=== PATIENT | male | born 1995 | race Caucasian/White ===

== ENCOUNTER 2016-09-10 16:12 | Emergency (ER) | payer BC ==
[2016-09-10] MEDS ORDERED: SODIUM CHLORIDE 0.9% 1,000 ML IV STA ×2 (17:00)
--- NOTE | 2016-09-10 17:07 | ED ---
General Adult HPI - General Chief complaint: Abdominal Pain Stated complaint: [facility] sent Time Seen by Provider: 09/10/16 16:41 Source: patient, family, RN notes reviewed Mode of arrival: ambulatory Limitations: no limitations - History of Present Illness Initial comments: Chief complaint history of present illness this is a 20-year-old male with complaint of mild abdominal any mild nausea and slight dizziness yesterday which made him leave work early. He went to a local urgent care clinic. At that spot he had had Monospot test done which was negative as well as a rapid strep test was negative. Patient reports his last bowel movement was yesterday. Mild cramping today. X-ray performed at that facility showed nonspecific air-fluid level as read by the radiologist.. On the patient's own self-examination he states he has discomfort to the right lower quadrant. - Related Data Home Medications Medication Instructions Recorded Confirmed No Known Home Medications [No 09/10/16 09/10/16 Known Home Medications] Allergies Allergy/AdvReac Type Severity Reaction Status Date / Time No Known Allergies Allergy Verified 09/10/16 17:38 Review of Systems ROS Statement: Those systems with pertinent positive or pertinent negative responses have been documented in the HPI. Review of systems no headache or visual acuity changes no sore throat this time. No chest pain or shortness of breath minimal nausea no vomiting last bowel movement yesterday has not passed gas since then. Slightly decreased appetite. No neuro deficits. All systems otherwise reviewed. Past medical problems ADHD on no medications for that. Surgeries none. Family history mother had I did inform mold. Uncle had prostate cancer. Patient no ALLERGIES nonsmoker nondrinker. ROS Other: All systems not noted in ROS Statement are negative. Past Medical History Past Medical History: No Reported History History of Any Multi-Drug Resistant Organisms: None Reported Past Surgical History: No Surgical Hx Reported Past Psychological History: No Psychological Hx Reported Smoking Status: Never smoker Past Alcohol Use History: None Reported Past Drug Use History: None Reported General Exam - General Exam Comments Initial Comments: General: The patient is awake and alert, in no distress, and does not appear acutely ill. Complains of mild abdominal discomfort mild nausea, decreased appetite. Vital signs temperature 98.4 pulse 88 respiratory rate 20 pulse ox 99% room air blood pressure 136/80. Eye: Pupils are equal, round and reactive to light, extra-ocular movements are intact ; there is normal conjunctiva bilaterally. No signs of icterus. Ears, nose, mouth and throat: There are moist mucous membranes and no oral lesions. Neck: The neck is supple, there is no tenderness . No anterior cervical lymphadenopathy Cardiovascular: There is a regular rate and rhythm. No murmur, rub or gallop is appreciated. Respiratory: Lungs are clear to auscultation, respirations are non-labored, breath sounds are equal. No wheezes, stridor, rales, or rhonchi. Gastrointestinal: Soft, non-distended, S minimalslight tenderness to the right lower quadrant . There is no rebound or guarding present. No CVA tenderness. Decreased bowel sounds patient had a bowel movement yesterday. He has not passed gas since then. Decreased appetite Back: There is no tenderness to palpation in the midline. Musculoskeletal: Normal ROM, no tenderness, There is no pedal edema. There is no calf tenderness or swelling. Sensation intact. Neurological: Slightly dizzy yesterday but no loss of balance. No headache. No neuro deficits appreciated. Skin: Skin is warm and dry and no rashes or lesions are noted. Limitations: no limitations Course Vital Signs 09/10/16 09/10/16 16:16 18:48 Temperature 98.4 F 98.3 F Pulse Rate 88 86 Respiratory 20 18 Rate Blood Pressure 136/80 152/87 O2 Sat by Pulse 99 98 Oximetry Medical Decision Making - Medical Decision Making Patient white count is 4.4 hemoglobin 14.8 hematocrit of 44, amylase lipase within normal limits. Potassium is 4.2 with a BUN 13 creatinine 0.9 with the GFR greater than 60. Urine is clean no signs of infection or blood. CT of the abdomen was done with both IV and oral contrast. Radiologist final impression is loops of bowel within the abdomen and pelvis are normal. Appendix was normal as visualized. No suspicious inflammatory changes or dilatation is evident. No clinical evidence at rest. No suspicious adenopathy in the right lower quadrant. Impression; #[address] pelvis. Normal appendix. As read by Dr. Penaloza The patient will be advised to use milk of magnesia in order to assist in having bowel movements advised increase his fluid intake and fiber diet. Advised follow-up with family physician as needed use Tylenol or ibuprofen for pain. - Lab Data Result diagrams: 09/10/16 17:16 09/10/16 17:16 Lab Results 09/10/16 09/10/16 09/10/16 Range/Units 17:16 17:16 17:16 WBC 4.4 (3.8-10.6) k/uL RBC 5.21 (4.30-5.90) m/uL Hgb 14.8 (13.0-17.5) gm/dL Hct 44.2 (39.0-53.0) % MCV 84.8 (80.0-100.0) fL MCH 28.4 (25.0-35.0) pg MCHC 33.5 (31.0-37.0) g/dL RDW 13.0 (11.5-15.5) % Plt Count 302 (150-450) k/uL Neutrophils % 47 % Lymphocytes % 33 % Monocytes % 14 % Eosinophils % 1 % Basophils % 1 % Neutrophils # 2.0 (1.3-7.7) k/uL Lymphocytes # 1.5 (1.0-4.8) k/uL Monocytes # 0.6 (0-1.0) k/uL Eosinophils # 0.1 (0-0.7) k/uL Basophils # 0.0 (0-0.2) k/uL Sodium 141 (137-145) mmol/L Potassium 4.2 (3.5-5.1) mmol/L Chloride 104 (98-107) mmol/L Carbon Dioxide 25 (22-30) mmol/L Anion Gap 12 mmol/L BUN 13 (9-20) mg/dL Creatinine 0.90 (0.66-1.25) mg/dL Est GFR (MDRD) Af Amer >60 (>60 ml/min/1.73 sqM) Est GFR (MDRD) Non-Af >60 (>60 ml/min/1.73 sqM) Glucose 92 (74-99) mg/dL Plasma Lactic Acid Greg 0.7 (0.7-2.0) mmol/L Calcium 10.0 (8.4-10.2) mg/dL Total Bilirubin 0.4 (0.2-1.3) mg/dL AST 17 (17-59) U/L ALT 31 (21-72) U/L Alkaline Phosphatase 54 (38-126) U/L Total Protein 7.6 (6.3-8.2) g/dL Albumin 4.6 (3.5-5.0) g/dL Amylase 31 (30-110) U/L Lipase 39 (23-300) U/L Urine Color Urine Appearance (Clear) Urine pH (5.0-8.0) Ur Specific [place] (1.001-1.035) Urine Protein (Negative) Urine Glucose (UA) (Negative) Urine Ketones (Negative) Urine Blood (Negative) Urine Nitrite (Negative) Urine Bilirubin (Negative) Urine Urobilinogen (<2.0) mg/dL Ur Leukocyte Esterase (Negative) 09/10/16 Range/Units 18:25 WBC (3.8-10.6) k/uL RBC (4.30-5.90) m/uL Hgb (13.0-17.5) gm/dL Hct (39.0-53.0) % MCV (80.0-100.0) fL MCH (25.0-35.0) pg MCHC (31.0-37.0) g/dL RDW (11.5-15.5) % Plt Count (150-450) k/uL Neutrophils % % Lymphocytes % % Monocytes % % Eosinophils % % Basophils % % Neutrophils # (1.3-7.7) k/uL Lymphocytes # (1.0-4.8) k/uL Monocytes # (0-1.0) k/uL Eosinophils # (0-0.7) k/uL Basophils # (0-0.2) k/uL Sodium (137-145) mmol/L Potassium (3.5-5.1) mmol/L Chloride (98-107) mmol/L Carbon Dioxide (22-30) mmol/L Anion Gap mmol/L BUN (9-20) mg/dL Creatinine (0.66-1.25) mg/dL Est GFR (MDRD) Af Amer (>60 ml/min/1.73 sqM) Est GFR (MDRD) Non-Af (>60 ml/min/1.73 sqM) Glucose (74-99) mg/dL Plasma Lactic Acid Greg (0.7-2.0) mmol/L Calcium (8.4-10.2) mg/dL Total Bilirubin (0.2-1.3) mg/dL AST (17-59) U/L ALT (21-72) U/L Alkaline Phosphatase (38-126) U/L Total Protein (6.3-8.2) g/dL Albumin (3.5-5.0) g/dL Amylase (30-110) U/L Lipase (23-300) U/L Urine Color Yellow Urine Appearance Clear (Clear) Urine pH 6.0 (5.0-8.0) Ur Specific [place] 1.013 (1.001-1.035) Urine Protein Negative (Negative) Urine Glucose (UA) Negative (Negative) Urine Ketones Negative (Negative) Urine Blood Negative (Negative) Urine Nitrite Negative (Negative) Urine Bilirubin Negative (Negative) Urine Urobilinogen <2.0 (<2.0) mg/dL Ur Leukocyte Esterase Negative (Negative) Disposition Clinical Impression: Abdominal cramping in right lower quadrant Disposition: HOME SELF-CARE Condition: Fair Instructions: Abdominal Pain (ED) Time of Disposition: 20:40
[2016-09-10 17:37] LABS: Basophils % (A) 1 %; CH 28.7; Eosinophils # (A) 0.1 k/uL (0-0.7); Eosinophils % (A) 1 %; HCT 44.2 % (39.0-53.0); HDW 2.34; HGB 14.8 gm/dL (13.0-17.5); Luc # (Auto) 0.18; Luc % (Auto) 4; Lymphocytes # (A) 1.5 k/uL (1.0-4.8); Lymphocytes % (A) 33 %; MCH 28.4 pg (25.0-35.0); MCHC 33.5 g/dL (31.0-37.0); MCV 84.8 fL (80.0-100.0); Mean Platelet Volume 6.6; Monocytes # (A) 0.6 k/uL (0-1.0); Monocytes % (A) 14 %; Neutrophils % (A) 47 %; RBC 5.21 m/uL (4.30-5.90); WBC 4.4 k/uL (3.8-10.6); WBC (Perox) 4.44
[2016-09-10 17:50] LABS: ALT 31 U/L (21-72); AST 17 U/L (17-59); Alkaline Phosphatase 54 U/L (38-126); Amylase 31 U/L (30-110); Anion Gap 12 mmol/L; Blood Urea Nitrogen 13 mg/dL (9-20); Carbon Dioxide 25 mmol/L (22-30); Chloride 104 mmol/L (98-107); Glucose 92 mg/dL (74-99); Non-African American GFR(MDRD) >60 (>60 ml/min/1.73 sqM); Potassium 4.2 mmol/L (3.5-5.1); Sodium 141 mmol/L (137-145); Total Bilirubin 0.4 mg/dL (0.2-1.3); Total Protein 7.6 g/dL (6.3-8.2)
[2016-09-10] MEDS ORDERED: IOHEXOL 350 MG/ML 25 ML BOTTLE (ORAL USE) PO PRN (18:19)
[2016-09-10] MEDS ORDERED: RX INFO: IV CONTRAST WAS GIVEN 1 EACH MISC MISCELLANE PRN (18:19)
[2016-09-10 18:49] VITALS: RESP 18
[2016-09-10 18:50] LABS: Appearance,Urine Clear (Clear); Bilirubin,Urine Negative (Negative); Glucose,Urine (UA) Negative (Negative); Ketones,Urine Negative (Negative); Leukocyte Esterase,Urine Negative (Negative); Nitrite,Urine Negative (Negative); Protein,Urine Negative (Negative); Specific Gravity,Urine 1.013 (1.001-1.035); UA Billing (MACRO vs. MICRO) CHEM; Urobilinogen,Urine <2.0 mg/dL (<2.0)
--- NOTE | 2016-09-10 19:48 | CT ---
EXAMINATION TYPE: CT abdomen pelvis w con DATE OF EXAM: 09/10/2016 7:31 PM COMPARISON: 07/04/2013 INDICATION: Generalized pain with dizziness DLP: 1368 mGycm, Automated exposure control for dose reduction was used. CONTRAST: 100 mL of Omnipaque 300. Study performed without Oral Contrast TECHNIQUE: Axial images were obtained from above the diaphragm to the pubic rami in the axial plane a t 5 mm thick sections. Reconstructed images are reviewed on the computer in the coronal plane. FINDINGS: Limited CT sections are obtained the lung bases. The lung bases are clear. CT ABDOMEN: Liver: Normal Spleen: Normal Pancreas: Normal Adrenal glands: The adrenal glands are normal. Gallbladder: Normal Kidneys: No masses are evident. No hydronephrosis is present. No cysts are present. Delayed images were obtained through the kidneys, which remain unremarkable. Aorta: Normal Inferior vena cava: Normal. CT PELVIS: Loops of bowel within the abdomen and pelvis are normal. Study is without oral contrast causing l imitation. Appendix: Normal as visualized. No suspicious inflammatory changes are dilatation is evident. No appe ndicolith is present. No suspicious adenopathy in the right lower quadrant. Urinary bladder: Normal. Genitourinary structures: Prostate is unremarkable Osseous structures: No suspicious lytic or sclerotic lesions. IMPRESSIONS: 1. Normal CT abdomen pelvis. 2. Normal appendix
[2016-09-10 21:08] VITALS: BP 142/74; PULSE 79; TEMP 98.1
== END 2016-09-10 21:08 | disposition home or self-care (01) ==
LOC: EC 16:12
DX: R10.31 Right lower quadrant pain (principal); R42 Dizziness and giddiness; R11.0 Nausea
CPT/HCPCS: 36415; 80053; 82150; 83605; 83690; 85025; 81003; 87086; 74177; 99284; 96360; 96361 ×3; Q9967

== ENCOUNTER 2016-11-19 00:15 | Emergency (ER) | payer OTHER, BC ==
[2016-11-19 00:25] VITALS: RESP 18
--- NOTE | 2016-11-19 00:59 | ED ---
Fall HPI - General Chief Complaint: Fall Stated Complaint: Fall/[facility] Time Seen by Provider: 11/19/16 00:42 Source: patient, family, RN notes reviewed Mode of arrival: EMS - History of Present Illness Initial Comments: Patient is 20-year-old male presents to the emergency room for evaluation of fall injury. Patient states while at work he slipped and fell injuring his neck and the back of his head. Patient denies losing consciousness. Patient also states that he had right knee pain and left elbow pain after the incident. Patient states his knee and elbow feel better. Patient states he's having constant pain in the base of his skull/neck. Patient denies paresthesias. Patient denies weakness. Patient denies any lower back pain. Patient states he 's having a constant headache. Patient denies changes in vision. Patient denies dizziness. Patient denies ringing in ears. Patient denies any other injuries during incident. - Related Data Home Medications Medication Instructions Recorded Confirmed No Known Home Medications [No 09/10/16 11/19/16 Known Home Medications] Allergies Allergy/AdvReac Type Severity Reaction Status Date / Time No Known Allergies Allergy Verified 11/19/16 00:25 Review of Systems ROS Statement: Those systems with pertinent positive or pertinent negative responses have been documented in the HPI. ROS Other: All systems not noted in ROS Statement are negative. Past Medical History Past Medical History: No Reported History History of Any Multi-Drug Resistant Organisms: None Reported Past Surgical History: No Surgical Hx Reported Past Psychological History: No Psychological Hx Reported Smoking Status: Never smoker Past Alcohol Use History: None Reported Past Drug Use History: None Reported General Exam - General Exam Comments Initial Comments: Laying in exam room, c-collar on Limitations: no limitations General appearance: alert, in no apparent distress Head exam: Present: atraumatic, normocephalic, normal inspection Eye exam: Present: normal appearance, PERRL, EOMI Pupils: Present: normal accommodation ENT exam: Present: normal exam, TM's normal bilaterally Neck exam: Present: tenderness (Cervical spine). Absent: normal inspection (c- collar on) Respiratory exam: Present: normal lung sounds bilaterally. Absent: respiratory distress Cardiovascular Exam: Present: regular rate, normal rhythm, normal heart sounds Extremities exam: Present: normal inspection Back exam: Present: normal inspection Neurological exam: Present: alert, oriented X3, CN II-XII intact Psychiatric exam: Present: normal affect, normal mood Skin exam: Present: warm, dry, intact, normal color, other (Ecchymosis and abrasion over right knee). Absent: rash Course Vital Signs 11/19/16 00:21 Temperature 98.4 F Pulse Rate 91 Respiratory 18 Rate Blood Pressure 141/62 O2 Sat by Pulse 98 Oximetry Medical Decision Making - Medical Decision Making Patient is a 20-year-old male since emergency room per dilution of slip and fall injury at work. Patient complaining of neck pain and headache. Brain C- spine negative for any acute findings. C-collar removed. Patient declined any pain medications while he was here. Advised patient to take Tylenol or Motrin for pain and to follow up with primary care provider for reevaluation 24-48 hours. Patient states he understands everything that was discussed with him. Return parameters discussed. Case discussed Dr. Claros. - Radiology Data Radiology results: report reviewed, image reviewed Disposition Clinical Impression: Fall, Cervical strain Disposition: HOME SELF-CARE Condition: Good Instructions: Cervical Strain (ED) Additional Instructions: Take Tylenol or ibuprofen as needed for discomfort. Please follow up with primary care provider in 1-2 days for reevaluation. If any new symptom arises or symptoms worsen, return to ER as soon as possible. Referrals: Igor Jane Jr, [Primary Care Provider] - 1-2 days Time of Disposition: 02:10
--- NOTE | 2016-11-19 01:58 | CT ---
EXAM: CT Head Without Intravenous Contrast CLINICAL HISTORY: Reason: Fall to left side, neck pain TECHNIQUE: Axial computed tomography images of the head/brain without intravenous contrast. CTDI is 57.40 mGy and DLP is 1116.00 mGy-cm. This CT exam was performed using one or more of the following dose reduction techniques: automated exposure control, adjustment of the mA and/or kV according to patient size, and/or use of iterative reconstruction technique. COMPARISON: None FINDINGS: Brain: No acute infarct or hemorrhage. No extra-axial fluid collection. No mass effect or midline shift. Ventricles and sulci: Normal. No ventriculomegaly or intraventricular hemorrhage. Skull: Normal. No bony lesion or fracture. Subcutaneous tissues: Normal. Sinuses: Normal. No air-fluid levels or mucosal thickening. Mastoid air cells: Normal. Orbits: Grossly unremarkable. IMPRESSION: No acute intracranial abnormality. EXAM: CT Cervical Spine Without Intravenous Contrast CLINICAL HISTORY: Reason: Fall to left side, neck pain TECHNIQUE: Axial computed tomography images of the cervical spine without intravenous contrast. CTDI is 23.00 mGy and DLP is 573.30 mGy-cm. This CT exam was performed using one or more of the following dose reduction techniques: automated exposure control, adjustment of the mA and/or kV according to patient size, and/or use of iterative reconstruction technique. COMPARISON: None FINDINGS: Bones: Normal alignment. No acute fracture or bony lesion. Disc spaces: No subluxation. No spinal canal stenosis or neuroforaminal stenosis. Soft tissues: Normal. Other: Normal. IMPRESSION: No acute traumatic abnormality.
[2016-11-19 02:32] VITALS: BP 132/61; PULSE 84; TEMP 98.5
== END 2016-11-19 02:31 | disposition home or self-care (01) ==
LOC: EC 00:15
DX: S16.1XXA Strain of muscle, fascia and tendon at neck level, initial encounter (principal); S80.01XA Contusion of right knee, initial encounter; S09.90XA Unspecified injury of head, initial encounter; W01.0XXA Fall on same level from slipping, tripping and stumbling without subsequent striking against object, initial encounter; Y92.69 Other specified industrial and construction area as the place of occurrence of the external cause
CPT/HCPCS: 70450; 72125; 99284

== ENCOUNTER 2019-03-08 22:35 | Emergency (ER) | payer BC ==
[2019-03-08 23:25] LABS: Basophils # (A) 0.1 k/uL (0-0.2); Basophils % (A) 1 %; Eosinophils # (A) 0.1 k/uL (0-0.7); Eosinophils % (A) 1 %; HCT 46.4 % (39.0-53.0); HGB 15.4 gm/dL (13.0-17.5); Lymphocytes # (A) 1.2 k/uL (1.0-4.8); Lymphocytes % (A) 11 %; MCH 27.6 pg (25.0-35.0); MCHC 33.2 g/dL (31.0-37.0); MCV 83.3 fL (80.0-100.0); Mean Platelet Volume 6.3; Monocytes # (A) 0.5 k/uL (0-1.0); Monocytes % (A) 4 %; Neutrophils % (A) 82 %; Platelet Count 389 k/uL (150-450); RBC 5.57 m/uL (4.30-5.90); RDW 12.7 % (11.5-15.5)
[2019-03-08 23:39] LABS: ALT 37 U/L (21-72); AST 23 U/L (17-59); Acetaminophen <10.0 ug/mL; African American GFR (CKD) >90 (>60 ml/min/1.73 sqM); Albumin 4.9 g/dL (3.5-5.0); Alcohol <10 mg/dL; Alkaline Phosphatase 64 U/L (38-126); Anion Gap 12 mmol/L; Blood Urea Nitrogen 12 mg/dL (9-20); Calcium 10.3 mg/dL (8.4-10.2); Carbon Dioxide 21 mmol/L (22-30); Chloride 105 mmol/L (98-107); Glucose 116 mg/dL (74-99); Potassium 4.2 mmol/L (3.5-5.1); Salicylate <1.0 mg/dL; Sodium 138 mmol/L (137-145); Total Bilirubin 0.5 mg/dL (0.2-1.3); Total Protein 8.2 g/dL (6.3-8.2)
--- NOTE | 2019-03-08 23:47 | ED ---
Psych HPI - General Chief Complaint: Psychiatric Symptoms Stated Complaint: Mental health Time Seen by Provider: 03/08/19 22:53 Source: patient Mode of arrival: ambulatory - History of Present Illness Initial Comments: Jose 23-year-old gentleman with a history of depression who presents the emergency department today requesting psychiatric care. Patient states that today he had a long conversation with an ex and states that he's had some realization's about himself and is feeling very depressed. Patient states that he wants to . He states that he was considering driving his truck as fast as possible into a tree to kill himself. Patient has a history of depression but is never been hospitalized is not on any medications. - Related Data Home Medications Medication Instructions Recorded Confirmed No Known Home Medications 09/10/16 03/08/19 Allergies Allergy/AdvReac Type Severity Reaction Status Date / Time No Known Allergies Allergy Verified 03/08/19 23:15 Review of Systems ROS Statement: Those systems with pertinent positive or pertinent negative responses have been documented in the HPI. ROS Other: All systems not noted in ROS Statement are negative. Past Medical History Past Medical History: No Reported History History of Any Multi-Drug Resistant Organisms: None Reported Past Surgical History: No Surgical Hx Reported Past Psychological History: No Psychological Hx Reported Smoking Status: Never smoker Past Alcohol Use History: None Reported Past Drug Use History: None Reported General Exam - General Exam Comments Initial Comments: Physical Exam GENERAL: Patient is well-developed and well-nourished. Patient is nontoxic and well- hydrated and is in no distress. HENT: Normocephalic, Atraumatic. EYES: PERRL, EOMI PULMONARY: Unlabored respirations. No audible rales rhonchi or wheezing was noted. CARDIOVASCULAR: Tachycardic regular ABDOMEN: Soft and nontender with normal bowel sounds. SKIN: Skin is clear with no lesions or rashes and otherwise unremarkable. : Deferred NEUROLOGIC: Patient is alert and oriented x3. Moving all extremities spontaneously MUSCULOSKELETAL: Normal extremities with adequate strength and full range of motion. No lower extremity swelling or edema. No calf tenderness. PSYCHIATRIC: Tearful, crying, depressed, suicidal Limitations: no limitations Course Vital Signs 03/08/19 03/09/19 22:43 04:06 Temperature 98.3 F 98.4 F Pulse Rate 130 H 117 H Respiratory 18 19 Rate Blood Pressure 146/91 126/67 O2 Sat by Pulse 98 98 Oximetry Medical Decision Making - Medical Decision Making Patient was seen and evaluated history is obtained from patient Patient is medically cleared for evaluation by emergency psychiatric services Emergency psychiatric services agrees with plan for inpatient psychiatric care. Patient was petitioned by the EPS nurse, I completed the patient certification. Patient is clear for transfer to psychiatric facility. I did complete psychiatric certification. - Lab Data Result diagrams: 03/08/19 23:02 03/08/19 23:02 Lab Results 03/08/19 03/08/19 03/08/19 Range/Units 23:02 23:02 23:02 WBC 11.0 H (3.8-10.6) k/uL RBC 5.57 (4.30-5.90) m/uL Hgb 15.4 (13.0-17.5) gm/dL Hct 46.4 (39.0-53.0) % MCV 83.3 (80.0-100.0) fL MCH 27.6 (25.0-35.0) pg MCHC 33.2 (31.0-37.0) g/dL RDW 12.7 (11.5-15.5) % Plt Count 389 (150-450) k/uL Neutrophils % 82 % Lymphocytes % 11 % Monocytes % 4 % Eosinophils % 1 % Basophils % 1 % Neutrophils # 9.0 H (1.3-7.7) k/uL Lymphocytes # 1.2 (1.0-4.8) k/uL Monocytes # 0.5 (0-1.0) k/uL Eosinophils # 0.1 (0-0.7) k/uL Basophils # 0.1 (0-0.2) k/uL Sodium 138 (137-145) mmol/L Potassium 4.2 (3.5-5.1) mmol/L Chloride 105 (98-107) mmol/L Carbon Dioxide 21 L (22-30) mmol/L Anion Gap 12 mmol/L BUN 12 (9-20) mg/dL Creatinine 0.63 L (0.66-1.25) mg/dL Est GFR (CKD-EPI)AfAm >90 (>60 ml/min/1.73 sqM) Est GFR (CKD-EPI)NonAf >90 (>60 ml/min/1.73 sqM) Glucose 116 H (74-99) mg/dL Calcium 10.3 H (8.4-10.2) mg/dL Total Bilirubin 0.5 (0.2-1.3) mg/dL AST 23 (17-59) U/L ALT 37 (21-72) U/L Alkaline Phosphatase 64 (38-126) U/L Total Protein 8.2 (6.3-8.2) g/dL Albumin 4.9 (3.5-5.0) g/dL Salicylates <1.0 mg/dL Urine Opiates Screen Not Detected (NotDetected) Ur Oxycodone Screen Not Detected (NotDetected) Urine Methadone Screen Not Detected (NotDetected) Ur Propoxyphene Screen Not Detected (NotDetected) Acetaminophen <10.0 ug/mL Ur Barbiturates Screen Not Detected (NotDetected) U Tricyclic Antidepress Not Detected (NotDetected) Ur Phencyclidine Scrn Not Detected (NotDetected) Ur Amphetamines Screen Not Detected (NotDetected) U Methamphetamines Scrn Not Detected (NotDetected) U Benzodiazepines Scrn Not Detected (NotDetected) Urine Cocaine Screen Not Detected (NotDetected) U Marijuana (THC) Screen Not Detected (NotDetected) Serum Alcohol <10 mg/dL Disposition Clinical Impression: Depression, Suicidal ideation Disposition: TRANSFER TO PSYCH HOSP/UNIT Condition: Fair Is patient prescribed a controlled substance at d/c from ED?: No Referrals: Igor Jane Jr, [Primary Care Provider] - 1-2 days
[2019-03-08 23:55] LABS: Amphetamine Screen,Urine Not Detected (NotDetected); Barbiturate Screen,Urine Not Detected (NotDetected); Benzodiazepines Screen,Urine Not Detected (NotDetected); Cocaine Screen,Urine Not Detected (NotDetected); Methadone Screen, Urine Not Detected (NotDetected); Opiate Screen,Urine Not Detected (NotDetected); Oxycodone Screen, Urine Not Detected (NotDetected); Phencyclidine Screen,Urine Not Detected (NotDetected); Tricyclic Antidepressant,Urine Not Detected (NotDetected); Urn Cannabinoid Scrn Not Detected (NotDetected)
[2019-03-09 04:07] VITALS: RESP 19; TEMP 98.4
[2019-03-09 06:23] VITALS: BP 151/71; PULSE 107
== END 2019-03-09 06:31 ==
LOC: EC 22:35
DX: F32.9 Major depressive disorder, single episode, unspecified (principal); R45.851 Suicidal ideations; R45.83 Excessive crying of child, adolescent or adult; R00.0 Tachycardia, unspecified
CPT/HCPCS: 36415; 80053; 80306; 80320; 80329; 82075; 83520; 85025; 99285

== ENCOUNTER 2022-11-05 17:58 | Emergency (ER) | payer BC ==
--- NOTE | 2022-11-05 18:08 | ED ---
Psych HPI - General Stated Complaint: Mental Health Time Seen by Provider: 11/05/22 18:00 Source: patient, EMS, RN notes reviewed Mode of arrival: EMS - History of Present Illness Initial Comments: When he-year-old male history depression was brought in by EMS with complaints of feeling depressed and having suicidal thoughts. He does have a history of depression currently is not taking his medications since yesterday. He denies any drugs or alcohol apparently got into an arterial with his mother today and this seemed to accelerate everything he states he feels like he's having mood swings feeling more agitated. No other current complaints or modifying factors MD Complaint: suicidal ideation, feels depressed - Related Data Home Medications Medication Instructions Recorded Confirmed No Known Home Medications 09/10/16 03/08/19 Allergies Allergy/AdvReac Type Severity Reaction Status Date / Time No Known Allergies Allergy Verified 11/05/22 18:05 Review of Systems ROS Statement: Those systems with pertinent positive or pertinent negative responses have been documented in the HPI. ROS Other: All systems not noted in ROS Statement are negative. Past Medical History Past Medical History: No Reported History, GERD/Reflux History of Any Multi-Drug Resistant Organisms: None Reported Past Surgical History: No Surgical Hx Reported Past Psychological History: ADD/ADHD, Bipolar, Depression Smoking Status: Current every day smoker Past Alcohol Use History: None Reported Past Drug Use History: None Reported General Exam - General Exam Comments Initial Comments: This is a well-developed well-nourished awake alert oriented 4 male Limitations: no limitations General appearance: alert, anxious Head exam: Present: atraumatic, normocephalic, normal inspection Eye exam: Present: normal appearance, PERRL, EOMI. Absent: scleral icterus, conjunctival injection, periorbital swelling ENT exam: Present: normal exam, mucous membranes moist Neck exam: Present: normal inspection, full ROM, other (urine or bruits). Absent: tenderness, meningismus, lymphadenopathy Respiratory exam: Present: normal lung sounds bilaterally. Absent: respiratory distress, wheezes, rales, rhonchi, stridor Cardiovascular Exam: Present: normal rhythm, tachycardia, normal heart sounds. Absent: systolic murmur, diastolic murmur, rubs, gallop, clicks GI/Abdominal exam: Present: soft, normal bowel sounds. Absent: distended, tenderness, guarding, rebound, rigid Extremities exam: Present: normal inspection, full ROM, normal capillary refill. Absent: tenderness, pedal edema, joint swelling, calf tenderness Back exam: Present: normal inspection Neurological exam: Present: alert, oriented X3, CN II-XII intact Psychiatric exam: Present: depressed, suicidal ideation Skin exam: Present: warm, dry, intact, normal color. Absent: rash Course Vital Signs 11/05/22 11/05/22 18:05 19:59 Temperature 98.5 F 97.7 F Pulse Rate 117 H 86 Respiratory 19 18 Rate Blood Pressure 148/82 149/81 O2 Sat by Pulse 97 96 Oximetry Medical Decision Making - Medical Decision Making The patient was evaluated by the EPS service, [place] patient currently is not a risk to himself or anyone else he'll be discharged with a plan he'll go home and stated a aunts house. He currently is not suicidal or homicidal. Not a risk to himself or anyone else.Was pt. sent in by a medical professional or institution (, PA, DISPLAY ASSOCIATE, urgent care, hospital, or long-term...) When possible be specific @ -Paramedics upon arrival Did you speak to anyone other than the patient for history (EMS, parent, family, police, friend...)? What history was obtained from this source @ -No Did you review nursing and triage notes (agree or disagree)? Why? @ -I reviewed and agree with nursing and triage notes Were old charts reviewed (outside hosp., previous admission, EMS record, old EKG, old radiological studies, urgent care reports/EKG's, long-term records)? Report findings @ -No old charts were reviewed Differential Diagnosis (chest pain, altered mental status, abdominal pain women, abdominal pain men, vaginal bleeding, weakness, fever, dyspnea, syncope, headache, dizziness, GI bleed, back pain, seizure, CVA, palpatations, mental health, musculoskeletal)? @ -Depression EKG interpreted by me (3pts min.). @ -Not done X-rays interpreted by me (1pt min.). @ -None done CT interpreted by me (1pt min.). @ -None done U/S interpreted by me (1pt. min.). @ -None done What testing was considered but not performed or refused? (CT, X-rays, U/S, labs)? Why? @ -None What meds were considered but not given or refused? Why? @ -None Did you discuss the management of the patient with other professionals (professionals i.e. , PA, DISPLAY ASSOCIATE, lab, RT, psych nurse, clinical social worker, supervisor beet end, teacher, chief clinical officer, case management manager)? Give summary @ -No Was smoking cessation discussed for >3mins.? @ -No Was critical care preformed (if so, how long)? @ -No Were there social determinants of health that impacted care today? How? (Homelessness, low income, unemployed, alcoholism, drug addiction, transportation, low edu. Level, literacy, decrease access to med. care, residential, rehab)? @ -No Was there de-escalation of care discussed even if they declined (Discuss DNR or withdrawal of care, Hospice)? DNR status @ -No What co-morbidities impacted this encounter? (DM, HTN, Smoking, COPD, CAD, Cancer, CVA, ARF, Chemo, Hep., AIDS, mental health diagnosis, sleep apnea, morbid obesity)? @ -Depression] Was patient admitted / discharged? Hospital course, mention meds given and route, prescriptions, significant lab abnormalities, going to OR and other pertinent info. @ -Patient was discharged home with a plan he'll follow-up outpatient. He is staying with an aunt night Undiagnosed new problem with uncertain prognosis? @ -No Drug Therapy requiring intensive monitoring for toxicity (Heparin, Nitro, Insulin, Cardizem)? @ -No Were any procedures done? @ -No Diagnosis/symptom? @ -Acute adjustment disorder, history of depression Acute, or Chronic, or Acute on Chronic? @ -Acute on chronic Uncomplicated (without systemic symptoms) or Complicated (systemic symptoms)? @ -Uncomplicated Side effects of treatment? @ -No Exacerbation, Progression, or Severe Exacerbation? @ -No Poses a threat to life or bodily function? How? (Chest pain, [place], [place], pneumonia, PE, COPD, DKA, ARF, appy, cholecystitis, CVA, Diverticulitis, Homicidal, Suicidal, threat to staff... and all critical care pts) @ -No - Lab Data Lab Results 11/05/22 Range/Units 18:15 Urine Opiates Screen Not Detected (NotDetected) Ur Oxycodone Screen Not Detected (NotDetected) Urine Methadone Screen Not Detected (NotDetected) Ur Propoxyphene Screen Not Detected (NotDetected) Ur Barbiturates Screen Not Detected (NotDetected) U Tricyclic Antidepress Not Detected (NotDetected) Ur Phencyclidine Scrn Not Detected (NotDetected) Ur Amphetamines Screen Not Detected (NotDetected) U Methamphetamines Scrn Not Detected (NotDetected) U Benzodiazepines Scrn Not Detected (NotDetected) Urine Cocaine Screen Not Detected (NotDetected) U Marijuana (THC) Screen Not Detected (NotDetected) Disposition Clinical Impression: Adjustment reaction of adult life Disposition: HOME SELF-CARE Condition: Good Instructions (If sedation given, give patient instructions): Mood Disorders (ED) Is patient prescribed a controlled substance at d/c from ED?: No Referrals: Igor Jane Jr, DO [Primary Care Provider] - 1-2 days Decision Date: 11/05/22 Decision Time: 20:10
[2022-11-05 18:42] LABS: Amphetamine Screen,Urine Not Detected (NotDetected); Barbiturate Screen,Urine Not Detected (NotDetected); Benzodiazepines Screen,Urine Not Detected (NotDetected); Cocaine Screen,Urine Not Detected (NotDetected); Methadone Screen, Urine Not Detected (NotDetected); Opiate Screen,Urine Not Detected (NotDetected); Oxycodone Screen, Urine Not Detected (NotDetected); Phencyclidine Screen,Urine Not Detected (NotDetected); Tricyclic Antidepressant,Urine Not Detected (NotDetected); Urn Cannabinoid Scrn Not Detected (NotDetected)
[2022-11-05 19:59] VITALS: BP 149/81; PULSE 86; RESP 18; TEMP 97.7
== END 2022-11-05 20:14 | disposition home or self-care (01) ==
LOC: EC 17:58
DX: F43.20 Adjustment disorder, unspecified (principal); Z86.59 Personal history of other mental and behavioral disorders; F17.200 Nicotine dependence, unspecified, uncomplicated
CPT/HCPCS: 80306; 82075; 99285

== ENCOUNTER 2023-04-19 15:19 | Outpatient (CLI) | payer BC ==
--- NOTE | 2023-04-19 16:38 | P.SLEEP ---
History of Present Illness DATE: 04/19/2023 CONSULTATION/NEW PATIENT EVALUATION HISTORY OF PRESENT ILLNESS/SLEEP-WAKE EVALUATION: 27-year-old gentleman had been evaluated in the sleep center for possible obstructive sleep apnea hypopnea syndrome. SLEEP SCHEDULE: Usually sleep schedule from 10 PM to 4 AM on weekdays from 10 PM to 10 AM on weekend. FALLING ASLEEP: Sometimes patient has difficulties with falling asleep, has TV set and bedroom. DURING SLEEP: Patient sleeps in different positions with loud snoring and awakenings with dry mouth, restless legs and sweating. Positive history of sleep talking. No history of hypnogogical hallucinations, sleep paralysis, or cataplexy. DURING THE DAY/WAKE STATE: In the morning patient wake up tired, has d ifficulties to place attention, has episodes of depression. [place] sleepiness scale is is significantly increased to 16. Patient may take up to 3 naps during the day. PAST MEDICAL HISTORY: Depression. PAST SURGICAL HISTORY: Withdom teeth extraction. MEDICATIONS: Fluoxetine 10 mg once a day and 20 mg once a day, buspirone 2 mg once a day, Divalproex 500 mg once a day. SOCIAL HISTORY: Negative for smoking, alcohol consumption occasional. FAMILY HISTORY: Hypertension, heart problems, asthma, cancer, diabetes. REVIEW OF SYSTEMS: Loud snoring, sleepiness during the day. No fevers. No double vision. No recent chest pain. No shortness of breath. No abdominal pain. No bleeding episodes. No blood in urine. No seizure episodes. PHYSICAL EXAMINATION: GENERAL: A pleasant patient without any distress. VITAL SIGNS: BP 135/71, HR 86, RR 16, weight 317.8 pounds, height 6 foot three- quarter inches, body mass index 42.1. HEENT: PERRLA, EOMI. Evaluation of oropharynx showed tongue protrudes midline, low position of soft palate Mallampati 3. NECK: Supple. No JVD. Thyroid is not palpable. 17-1/3 inches in circumference. LUNGS: Clear to percussion and to auscultation. Good air exchange. No wheezing or rhonchi. HEART: S1, S2 regular. No murmurs, gallops or rubs. ABDOMEN: Soft and nontender. Bowel sounds are present. No organomegaly appreciated. EXTREMITIES: No clubbing or cyanosis. SEMICONDUCTOR BONDER: Awake, alert, and oriented x3. Cranial nerves 2 to 7 intact. There is no fasciculation or atrophy noted. No focal deficits observed. ASSESSMENT: 1. Loud snoring, low position of soft palate Mallampati 3, wide neck 17-1/3 inches in circumference, sleepiness with [place] Sleepiness Scale 16. Obstructive sleep apnea hypopnea syndrome. 2. Significant excessive daytime sleepiness with her for sleepiness scale 16 dictates necessity to include hypersomnia in differential diagnosis. 3. History of depression. 4. For obesity, BMI 42.1. 5. oil transport driver PLAN: 1. Polysomnography for evaluation of patient's breathing during sleep. 2. Following plan after reading sleep test. Patient may need multiple sleep latency test if sleep study will be negative for obstructive sleep apnea hypopnea syndrome. 3. Preferable position during sleep on the side. 4. No driving if patient feels any sleepiness. Patient is aware of civil and criminal liability for unsafe driving. 5. Sleep hygiene with regular sleep time for at least 7.5-8 hours. 6. Watching weight. Thank you very much for referring this patient for consultation. Sincerely, Edison Rico MD, PhD, FAASM. Diplomat of [employer], Sleep Medicine Board by [employer]andising Coordinator of [facility] [place] Past Medical History Past Medical History: No Reported History, GERD/Reflux History of Any Multi-Drug Resistant Organisms: None Reported Past Surgical History: No Surgical Hx Reported Past Psychological History: ADD/ADHD, Bipolar, Depression Smoking Status: Current every day smoker Past Alcohol Use History: None Reported Past Drug Use History: None Reported Medications and Allergies Home Medications Medication Instructions Recorded Confirmed Type No Known Home Medications 09/10/16 03/08/19 History Allergies Allergy/AdvReac Type Severity Reaction Status Date / Time No Known Allergies Allergy Verified 11/05/22 18:05 Sleep Note - Sleep Note Sleep Note: Temperature: Pulse Rate: Respiratory Rate: Blood Pressure: SpO2: Height: Weight: BMI: Neck Circumference:
== END 2023-04-24 05:30 | disposition home or self-care (01) ==
LOC: 3 N SLEEP 15:19
PROVIDERS: ATTEND Internal Medicine
DX: G47.33 Obstructive sleep apnea (adult) (pediatric) (principal); F32.A Depression, unspecified; E66.9 Obesity, unspecified; Z68.41 Body mass index [BMI] 40.0-44.9, adult; R40.0 Somnolence
CPT/HCPCS: 95810; 99211

== ENCOUNTER 2023-04-23 19:46 | Outpatient (CLI) | payer BC ==
--- NOTE | 2023-04-25 13:49 | P.PCN ---
Description of Procedure: POLYSOMNOGRAPHY REPORT PROCEDURE(S)/DATE(S): Polysomnography 04/23/2023 CLINICAL: Patient has been seen in the sleep center for evaluation of obstructive sleep apnea-hypopnea syndrome. Please see my consultation. Sleep study has been done for evaluation of patient breathing during the sleep. PROCEDURE: The standard montage for clinical polysomnography included the electroencephalogram, the electrooculogram, the mentalis surface electromyography and Lead II cardiography. The respiratory battery consisted of measurements of nasal/buccal air flow, pressure transducer measurements from nose, thoracic and/or abdominal effort and intercostal surface electromyography. Video monitoring has been done to check for any parasomnia events. Nocturnal oxyhemoglobin saturations were obtained by finger oximetry. Step-mistry titration with positive airway pressure was utilized to control the respiratory events, if necessary. RESULTS: During the diagnostic sleep study sleep efficiency was normal 91.0 %. Latency to sleep onset was normal 12.5 min. Sleep architecture showed stage NI was normal 4.4 %, Delta sleep was short 1.1 %, REM sleep was borderline 19.1 %. Respiratory channel showed 0 obstructive apneas, 0 mixed apneas, 0 central apneas, 2 hypopneas with lowest oxygen level 91%. Total apnea hypopnea index was 0.3. Heart rate was in the range between 80 and 91, average 85. EMG showed 1.2 periodic limb movements per hour with 1.0 micro-arousals per hour. IMPRESSIONS: 1. No significant respiratory abnormalities have been documented during sleep study. 2. No significant periodic limb movements have been documented. 3. Loud snoring have been documented. 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 Sleep hygiene with regular time in bed for at least 7-1/2 hours. 2. Losing weight program. 3. No driving if feeling sleepiness, patient is aware about civil and criminal liability for unsafe driving. 4. I will see patient for follow-up visit to explain results of the test. Thank you very much for allowing me to participate in the management of your patient. Sincerely, Edison Rico MD, PhD, FAASM. Diplomat of [employer] [place] [employer], Sleep Medicine Board by [place] [employer] of [employer] Medicine Senior Quality Manager of [facility] [place]
== END 2023-04-24 05:30 | disposition home or self-care (01) ==
LOC: 3 N SLEEP 19:46
PROVIDERS: ATTEND Internal Medicine
DX: G47.33 Obstructive sleep apnea (adult) (pediatric) (principal); G47.61 Periodic limb movement disorder
CPT/HCPCS: 95810